=== PATIENT | female | born 1980 | race American Indian/Alaskan Native ===

== ENCOUNTER 2016-12-10 16:42 | Emergency (ER) | payer OTHER ==
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
[2016-12-10] MEDS ORDERED: MOTRIN PO ONE (21:22)
[2016-12-10 21:31] VITALS: BP 126/82
== END 2016-12-10 22:47 | disposition home or self-care (01) ==
LOC: ED 16:42
DX: S13.4XXA Sprain of ligaments of cervical spine, initial encounter (principal); Z88.1 Allergy status to other antibiotic agents; V49.9XXA Car occupant (driver) (passenger) injured in unspecified traffic accident, initial encounter; Y93.89 Activity, other specified; Y92.89 Other specified places as the place of occurrence of the external cause; Y99.8 Other external cause status
CPT/HCPCS: 99281; 99282

== ENCOUNTER 2017-05-02 20:41 | Emergency (ER) | payer OTHER ==
[2017-05-02 22:26] VITALS: BP 130/79
[2017-05-03] MEDS ORDERED: FLEXERIL PO ONE (02:12)
[2017-05-03] MEDS ORDERED: TORADOL IM ONE (02:12)
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
== END 2017-05-03 03:25 | disposition home or self-care (01) ==
LOC: ED 20:41
DX: M79.1 Myalgia (principal)
CPT/HCPCS: 96372; 99282; J1885